=== PATIENT | female | born 1965 | race Caucasian/White ===

== ENCOUNTER 2016-03-25 11:35 | Emergency (ER) | payer MEDICAID ==
[2016-03-25] MEDS ORDERED: OXYCODONE-ACETAMINOPHEN 5-325 MG TABLET PO ONE (11:52)
--- NOTE | 2016-03-25 11:54 | ER Document Report ---
ED Medical Screen (RME) - General Stated Complaint: POSSIBLE RIGHT ANKLE INJURY Notes: was walking to her car last evening when she was on uneven pavement. she rolled her ankle to the side, and there was a audible "snap", visible swelling and bruising. admits to tingling in her toes, no numbness. has taken motrin last night which allowed her to sleep. ice all night 5/5 in severity, worse with movement has not been walking on it. she has been using crutches. TRAVEL OUTSIDE OF THE [place] IN LAST 30 DAYS: No - Related Data Allergies/Adverse Reactions: No Known Allergies Allergy (Verified 03/25/16 11:50) Past Medical History - Past Medical History Cardiac Medical History: Reports: Hx Hypertension - on meds Denies: Hx Coronary Artery Disease, Hx Heart Attack Pulmonary Medical History: Denies: Hx Asthma, Hx Bronchitis, Hx COPD, Hx Pneumonia Neurological Medical History: Denies: Hx Cerebrovascular Accident, Hx Seizures Malignancy Medical History: Reports: Hx Breast Cancer Musculoskeltal Medical History: Denies Hx Arthritis Past Surgical History: Reports: Hx Breast Surgery - right masectomy - Immunizations Hx Diphtheria, Pertussis, Tetanus Vaccination: No
[2016-03-25] MEDS ORDERED: KETOROLAC TROMETHAMINE 10 MG TABLET PO ONE (13:10)
--- NOTE | 2016-03-25 13:19 | ER Document Report ---
ED Extremity Problem, Lower - General Chief Complaint: Ankle Pain Stated Complaint: POSSIBLE RIGHT ANKLE INJURY Mode of Arrival: Wheelchair Information source: Patient TRAVEL OUTSIDE OF THE [place] IN LAST 30 DAYS: No - HPI Location: Ankle - Right ankle pain after a trip fall last night - Related Data Allergies/Adverse Reactions: No Known Allergies Allergy (Verified 03/25/16 11:50) Past Medical History - Social History Smoking Status: Current Every Day Smoker Chew tobacco use (# tins/day): No Frequency of alcohol use: Occasional Drug Abuse: None Family History: Reviewed & Not Pertinent Patient has suicidal ideation: No Patient has homicidal ideation: No - Past Medical History Cardiac Medical History: Reports: Hx Hypertension - on meds Denies: Hx Coronary Artery Disease, Hx Heart Attack Pulmonary Medical History: Denies: Hx Asthma, Hx Bronchitis, Hx COPD, Hx Pneumonia Neurological Medical History: Denies: Hx Cerebrovascular Accident, Hx Seizures Renal/ Medical History: Denies: Hx Peritoneal Dialysis Malignancy Medical History: Reports: Hx Breast Cancer Musculoskeltal Medical History: Denies Hx Arthritis Past Surgical History: Reports: Hx Breast Surgery - right masectomy - Immunizations Hx Diphtheria, Pertussis, Tetanus Vaccination: No Review of Systems - Review of Systems Constitutional: No symptoms reported EENT: No symptoms reported Cardiovascular: No symptoms reported Respiratory: No symptoms reported Gastrointestinal: No symptoms reported Genitourinary: No symptoms reported Female Genitourinary: No symptoms reported Musculoskeletal: No symptoms reported Skin: No symptoms reported Hematologic/Lymphatic: No symptoms reported Neurological/Psychological: No symptoms reported Physical Exam - Vital signs Vitals: Temp Pulse Resp BP Pulse Ox 98.1 F 81 16 127/78 H 98 03/25/16 11:50 03/25/16 11:50 03/25/16 11:50 03/25/16 11:50 03/25/16 11:50 Interpretation: Normal - General General appearance: Appears well, Alert - HEENT Head: Normocephalic, Atraumatic Eyes: Normal Pupils: PERRL - Respiratory Respiratory status: No respiratory distress Chest status: Nontender Breath sounds: Normal Chest palpation: Normal - Cardiovascular Rhythm: Regular Heart sounds: Normal auscultation Murmur: No - Abdominal Inspection: Normal Distension: No distension Bowel sounds: Normal Tenderness: Nontender Organomegaly: No organomegaly - Back Back: Normal, Nontender - Extremities General upper extremity: Normal inspection, Nontender, Normal color, Normal ROM , Normal temperature General lower extremity: Normal inspection, Nontender, Normal color, Normal ROM , Normal temperature, Normal weight bearing. No: Porfirio's sign Ankle: Tender, Deformity, Ecchymosis, Unable to bear weight - Neurological Neuro grossly intact: Yes Cognition: Normal Orientation: AAOx4 [place] Coma Scale Eye Opening: Spontaneous [place] Coma Scale Verbal: Oriented [place] Coma Scale Motor: Obeys Commands [place] Coma Scale Total: 15 Speech: Normal Motor strength normal: LUE, RUE, LLE, RLE Sensory: Normal - Psychological Associated symptoms: Normal affect, Normal mood - Skin Skin Temperature: Warm Skin Moisture: Dry Skin Color: Normal Course - Vital Signs Vital signs: Temp Pulse Resp BP Pulse Ox 98.1 F 81 16 127/78 H 98 03/25/16 11:50 03/25/16 11:50 03/25/16 11:50 03/25/16 11:50 03/25/16 11:50 - Diagnostic Test Radiology reviewed: Reports reviewed Procedures - Immobilization Right Ankle Time completed: 13:16 Pre-Proc Neuro Vasc Exam: Normal Immobilizer type: Ankle stirrup, Posterior ankle Performed by: RN Post-Proc Neuro Vasc Exam: Normal Alignment checked and good: Yes Discharge - Discharge Clinical Impression: Closed right trimalleolar fracture Qualifiers: Encounter type: initial encounter Qualified Code(s): S82.851A - Displaced trimalleolar fracture of right lower leg, initial encounter for closed fracture Disposition: HOME, SELF-CARE Instructions: Fractured Ankle (Bimalleolar) (FORM[facility]) Additional Instructions: Ankle Stirrup Splint You are to use an ankle brace called a stirrup splint. This type of brace allows you to place greater stresses on the ankle without risk of re-injury, and is often used for more severe ankle injuries such as avulsion fractures and ligament ruptures. The splint can be worn over a sock or tape. For proper support, wear the splint with a shoe over it. It's important that the splint fit properly. Adjust the heel tension, if needed. If your splint has air bladders, peel back the bottom of each air bladder, then move the Velcro attachment of the heel strap up or down. Air bladder pressure can be adjusted by pulling up the valve at the top, threading the air tube down into the main bladder, then blowing air into the bladder or squeezing it out. The two sides of the stirrup can be moved forward or back on your ankle by changing the attachment of the main straps. If you are unable to use the ankle comfortably in the splint, return for re -evaluation. Crutches as directed in the ER. Must follow-up with Dr. Luna please call the office for the soonest available appointment. Prescriptions: Hydrocodone/Acetaminophen [[place] 5-325 Tablet] 1 each PO Q4 PRN #20 tablet PRN Reason: Naproxen Sodium [Naproxen Sodium ER] 500 mg PO Q12 PRN #20 tablet.sa PRN Reason: Referrals: MERLE GORE MD [Primary Care Provider] - Follow up as needed JEWEL LUNA DO [ACTIVE STAFF] - Follow up as needed
[2016-03-25 14:29] VITALS: BP 132/80
== END 2016-03-25 14:32 | disposition home or self-care (01) ==
LOC: ER 11:35
PROC: 2W3SX1Z Immobilization of Right Foot using Splint (ICD-10-PCS; principal; 2016-03-25)
DX: M25.571 Pain in right ankle and joints of right foot (principal); F17.210 Nicotine dependence, cigarettes, uncomplicated; S82.851A Displaced trimalleolar fracture of right lower leg, initial encounter for closed fracture; X58.XXXA Exposure to other specified factors, initial encounter
CPT/HCPCS: 99283; 73610; 73630; 29515; J3490

== ENCOUNTER 2016-03-30 09:53 | Day surgery (SDC) | payer MEDICAID ==
[~2016-03-30 09:53] MED LIST: BACITRACIN INJ 50,000 UNIT VIAL ONE; BUPIVACAINE HCL 0.5 % INJ/PF 30 ML SDV ONE; CEFAZOLIN 2 GM/D5W RTU 2 GM/50 ML RTUPB IV PRN
[2016-03-30] MEDS ORDERED: HYDROMORPHONE HCL INJ/PF 2 MG/ML AMPULE ONE (12:38)
[2016-03-30] MEDS ORDERED: FENTANYL CITRATE INJ/PF 100 MCG/2 ML AMPUL ONE (12:38)
[2016-03-30] MEDS ORDERED: PROPOFOL INJ 200 MG/20 ML VIAL IV ONE (12:39)
[2016-03-30] MEDS ORDERED: ONDANSETRON HCL INJ/PF 4 MG/2 ML SDV ONE (12:39)
[2016-03-30] MEDS ORDERED: MIDAZOLAM 2 MG/2 ML INJ ONE (12:39)
[2016-03-30] MEDS ORDERED: MEPERIDINE HCL/PF INJ 25 MG/1 ML DISP.SYRIN IV PRN (13:14)
[2016-03-30] MEDS ORDERED: DIPHENHYDRAMINE HCL 50 MG/ML VIAL IV PRN (13:14)
[2016-03-30] MEDS ORDERED: FENTANYL CITRATE INJ/PF 100 MCG/2 ML AMPUL IV PRN ×3 (13:14)
[2016-03-30] MEDS ORDERED: PROMETHAZINE HCL INJ 25 MG/1 ML VIAL IV PRN (13:14)
[2016-03-30] MEDS ORDERED: BUPIVACAINE HCL 0.5 % INJ/PF 30 ML SDV INJ ONE (14:26)
--- NOTE | 2016-03-30 15:01 | PDOC DISCHARGE SUMMARY ---
Discharge Summary (SDC) - Discharge Final Diagnosis: Right Trimalleolar Ankle Fracture Date of Surgery: 03/30/16 Discharge Date: 03/30/16 Condition: Good Treatment or Instructions: Schedule Follow Up w/ Dr. Ronny Eric @ [facility] for Surgery to be seen in 10-14 days or as scheduled [place]: [place]: [place]: Keep splint clean/dry/intact. Ice and elevate Nonweightbearing right lower extremity Stool softener of choice when on pain medication. Prescriptions: Oxycodone HCl/Acetaminophen [Percocet 7.5-325 Mg Tablet] 1 each PO Q6 PRN #55 tablet PRN Reason: Discharge Diet: As Tolerated Respiratory Treatments at Home: Deep Breathing/Coughing, Incentive Spirometer Discharge Activity: No Driving, No Lifting/Push/Pulling Adaptive Devices on Discharge: Axillary Crutches Report the Following to Your Physician Immediately: Increase in Pain, Fever over 101 Degrees, Unusual Bleeding, Redness, Swelling, Warmth, Increased Soreness, Numbness, Tingling Sensation
--- NOTE | 2016-03-30 15:10 | Operative Report ---
Operative Report DATE OF SURGERY: 03/30/16 PREOPERATIVE DIAGNOSIS: Right Trimalleolar Ankle Fracture POSTOPERATIVE DIAGNOSIS: Same OPERATION: ORIF Right Trimalleolar Ankle Fracture SURGEON: JEWEL LUNA ANESTHESIA: GA COMPLICATIONS: None ESTIMATED BLOOD LOSS: Minimal PROCEDURE: Indication for above procedure: 51-year-old female who sustained a fall onto her right ankle. Patient was brought to the emergency room where x-rays demonstrated trimalleolar ankle fracture. Patient followed up at my office at which point we discussed treatment options including operative versus nonoperative intervention. Risks and benefits were explained to the patient patient verbalized understanding and consented for the procedure. Procedure In Detail: Patient was seen and evaluated in the preoperative holding area. The RIGHT lower extremity was initialized and marked. Patient received 2g of Ancef IV for bacterial prophylaxis. Patient was taken back to the operative room where transferred to the operative table and placed under general anesthesia. Once they were adequately anesthetized a nonsterile tourniquet was placed on the lower extremity. A surgical team debriefing was performed ensuring all instrumentation was available, the surgical procedure was discussed with possible concerns reviewed. The lower extremity was prepped with ChloraPrep and draped in a sterile fashion. A timeout was done identifying correct patient, procedure and extremity everyone in attendance agree with this and verbalized no concerns. The extremity was exsanguinated the tourniquet was inflated to 300 mmHg. A longitudinal skin incision was made over the distal fibula. Blunt dissection was done to the soft tissues a large branch of the superficial peroneal nerve was identified traveling posterior proximal to anterior distal. This was freed of overlying soft tissue to avoid compression and protected and retracted throughout the entirety of the case. The fracture of the distal fibula was then identified. Using a 15 blade the cortical edges were prepared and a reduction tenaculum was utilized to provide interfragmentary compression. C- arm fluoroscopy was obtained which demonstrated anatomic reduction of the distal fibula fracture without evidence of residual angulation or shortening. I then proceeded with placement of interfragmentary screws a 2.5 mm drill was used to the near cortex and a 2.5 mm drill was used for the far cortex. A total of 2 interfragmentary screws were placed perpendicular to the fracture obtaining interfragmentary compression. I then placed a Sandro lateral distal fibular plate. The plate was first secured proximally to the shaft and then secured distally with a cortical screw. 2 additional locking screws were placed distally and final fixation was obtained proximally with 2 additional bicortical screws. C-arm fluoroscopy was obtained which demonstrated near anatomic reduction of the distal fibula fracture. The wound was then copiously irrigated with normal saline I turned my attention to the medial malleolus. Small longitudinal skin incision was made over the medial malleolus. Blunt dissection was performed to the deltoid ligament. A small branch of the saphenous vein was identified and coagulated. A small longitudinal slit was made within the deltoid ligament. Threaded Lito wires were placed perpendicular to the fracture and C-arm fluoroscopy was obtained demonstrating appropriate placement of my 2 Lito wires. I placed 24.0 cannulated partially threaded cancellus screws which provided interfragmentary compression of my medial malleolus fragment. The wound was irrigated with normal saline I turned my attention to the posterior malleolus. Lateral view demonstrated displacement of the posterior malleolus fracture and it was greater than 25% in width. Blunt dissection was performed posterior to the peroneal muscles and using a wooden handle elevator I was able to reduce the posterior malleolus fragment. A small skin incision was made along the anterior aspect of the ankle blunt dissection with a hemostat was performed down to the anterior cortex of the tibia. Using a tissue protector a partially- threaded K wire was placed into the posterior malleolus fragment. C-arm fluoroscopy was obtained demonstrating reduction of the fragment with appropriate location of my K wire I then measured the appropriate size screw and a partially-threaded 4.0 mm cancellus screw was placed into the posterior malleolus fragment. Final C-arm fluoroscopy radiographs were obtained demonstrating acceptable reduction of the medial, lateral and posterior malleoli or fragments without evidence of medial space widening, tibia/fibular clear space widening or subluxation of the tibiotalar articulation. The wound was copiously irrigated with normal saline. The deep soft tissues of the lateral wound was closed with interrupted 3-0 Vicryl and special care was taken to avoid large peroneal nerve branch. Subcutaneous tissues were closed with interrupted 3-0 Vicryl and skin was closed a running subcuticular 3-0 Monocryl reinforced with Dermabond and Steri-Strips.. The anterior and medial wounds were closed with subcuticular 3-0 Monocryl reinforced with Dermabond and Steri-Strips. 20 mL of 0.5% Marcaine without epinephrine was injected for postoperative pain control. Wound was dressed with 4 x 4's and cast padding and patient was placed in a 3 sided plaster splint. Tourniquet was deflated. Sponge counts, instrument counts, needle counts counts were correct. Patient was then awoken from anesthesia. Transferred from the operating room table to the operating room stretcher. There was no intraoperative complications patient tolerated procedure well stable to PACU. Postoperative plan: Patient will follow-up in the office in 2 weeks at which point we will proceed with splint off radiographs and patient will be transitioned to a pneumatic walking boot versus cast.
--- NOTE | 2016-03-30 16:33 | EKG REPORT ---
SEVERITY:- NORMAL ECG - SINUS RHYTHM : Confirmed by: Roshan Pearl MD 30-Mar-2016 16:32:23
[2016-03-30 17:05] VITALS: BP 110/78
== END 2016-03-30 17:05 | disposition home or self-care (01) ==
LOC: OROUT 09:53
PROVIDERS: ATTEND Orthopaedic Surgery
PROC: 0QSJ04Z Reposition Right Fibula with Internal Fixation Device, Open Approach (ICD-10-PCS; 2016-03-30)
PROC: 0QSG04Z Reposition Right Tibia with Internal Fixation Device, Open Approach (ICD-10-PCS; principal; 2016-03-30 12:00)
DX: S82.851A Displaced trimalleolar fracture of right lower leg, initial encounter for closed fracture (principal); W19.XXXA Unspecified fall, initial encounter; F17.210 Nicotine dependence, cigarettes, uncomplicated; I10 Essential (primary) hypertension; Z79.899 Other long term (current) drug therapy; Z01.810 Encounter for preprocedural cardiovascular examination; Z01.811 Encounter for preprocedural respiratory examination; Z01.89 Encounter for other specified special examinations; Z85.3 Personal history of malignant neoplasm of breast
CPT/HCPCS: 81025; 73600; 71010; 93005; 93010; 27822; C1713 ×4; C1769; J2250; J1170; J2405; J2704; J0690; J3010; J3490

== ENCOUNTER → 2016-06-30 | Outpatient (CLI) | payer MEDICAID | LOC: WI 12:55 | PROVIDERS: ATTEND Specialist | DX: M81.0 Age-related osteoporosis without current pathological fracture (principal) | CPT/HCPCS: 77080 ==

== ENCOUNTER → 2016-12-28 | Outpatient (CLI) | payer MEDICAID ==
--- NOTE | 2016-12-28 18:37 | WOMENS IMAGING REPORT ---
EXAM DESCRIPTION: LEFT SCREENING MAMMO W/CAD COMPLETED DATE/TIME: 12/28/2016 2:54 pm REASON FOR STUDY: ROUTINE SCREENING; Z12.31 Z12.31 ENCNTR SCREEN MAMMOGRAM FOR MALIGNANT NEOPLASM O F TAMERA COMPARISON: 12/08/2015 TECHNIQUE: Standard craniocaudal and mediolateral oblique views of the breast recorded using digital acquisition. LIMITATIONS: None. FINDINGS: BREAST: Left No masses, calcifications or architectural distortion. No areas of suspicion. Read with the assistance of CAD. .[facility] - R2 Cenova Version 1.3 .[facility] - R2 Cenova Version 1.3 .[facility] - R2 Cenova Version 2.4 .[facility] [place] - R2 Cenova Version 2.4 .[facility] - R2 Continuous Dryout Operator Version 9.2 IMPRESSION: NORMAL MAMMOGRAM. BIRADS 1. BREAST DENSITY: b. There are scattered areas of fibroglandular density. BIRAD: 1 NEGATIVE RECOMMENDATION: RECOMMENDATION: ROUTINE SCREENING. Please consider yearly bilateral screening tomosynthesis in December 2017 COMMENT: The patient has been notified of the results by letter per SA requirements. Additional no tification policies are in place for contacting patient with suspicious or incomplete findings. Quality ID #[id number]: The [employer] recommends an annual screening mammogram for women aged 40 years or over. This facility utilizes a reminder system to ensure that all patients receive reminder letters, and/or direct phone calls for appointments. This includes reminders for routine scr eening mammograms, diagnostic mammograms, or other Breast Imaging Interventions when appropriate. Th is patient will be placed in the appropriate reminder system. The [employer] (ACR) has developed recommendations for screening MRI of the breast s in certain patient populations, to be used in conjunction with mammography. Breast MRI surveillance may be appropriate for women with more than 20% lifetime risk of developing breast cancer as determi romel by genetic testing, significant family history of the disease, or history of mantle radiation for Hodgkins Disease. ACR Practice Guidelines 2008. TECHNICAL DOCUMENTATION: FINDING NUMBER: (1) ASSESSMENT: (1) JOB ID: [id number] [employer]- All Rights Reserved
== END ==
LOC: WI 14:45
PROVIDERS: ATTEND Internal Medicine Hematology & Oncology
DX: Z12.31 Encounter for screening mammogram for malignant neoplasm of breast (principal)
CPT/HCPCS: G0202-52